=== PATIENT | female | born 1985 | race Hispanic/Latino ===

== ENCOUNTER 2016-04-28 15:06 | Emergency (ER) | payer SELFPAY ==
[2016-04-28 15:59] VITALS: BP 111/63
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
[2016-04-28] MEDS ORDERED: MOTRIN PO ONE (19:32)
[2016-04-28] MEDS ORDERED: NORCO 5/325 PO ONE ×2 (19:32→22:07)
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
== END 2016-04-28 22:31 | disposition home or self-care (01) ==
LOC: ED 15:06
DX: S82.831A Other fracture of upper and lower end of right fibula, initial encounter for closed fracture (principal); I10 Essential (primary) hypertension; M19.90 Unspecified osteoarthritis, unspecified site; F17.200 Nicotine dependence, unspecified, uncomplicated; V09.20XA Pedestrian injured in traffic accident involving unspecified motor vehicles, initial encounter; Y93.9 Activity, unspecified; Y99.9 Unspecified external cause status; Y92.410 Unspecified street and highway as the place of occurrence of the external cause

== ENCOUNTER 2018-10-11 14:25 | Emergency (ER) | payer OTHER ==
[2018-10-11] MEDS ORDERED: HALDOL IM PRN (14:44)
[2018-10-11] MEDS ORDERED: ATIVAN IM PRN (14:44)
--- NOTE | 2018-10-11 14:45 | Emergency Department Report ---
ED General Adult HPI - General Chief complaint: Altered Mental Status Stated complaint: AMS/OVERDOSE Time Seen by Provider: 10/11/18 14:34 Source: EMS (verbal report received from EMS.ems notes not available at time of chart dictation) Mode of arrival: Stretcher Limitations: Altered Mental Status - History of Present Illness Initial comments: This is a 32-year-old female. The patient is not known to this provider previously. The patient is brought to the hospital by emergency medical services. Apparently, the patient was found down, in a convenience store, with her pants down. Her last known well time is not known. The circumstances of her fall are not known. EMS indicates normal Accu-Chek in the field. Patient was given Narcan, with minimal response. In the emergency room, patient sleepy, but arouses to painful stimuli, moves 4 extremities spontaneously, is protecting her airway. -: unknown Radiation: other Quality: other Consistency: other Improves with: other Worsens with: other Associated Symptoms: other - Related Data Home Medications Medication Instructions Recorded Confirmed Last Taken ALBUTEROL Inhaler (OR & NICU) 2 puff IH QID PRN 01/11/13 01/11/13 01/11/13 [Proair] Previous Rx's Medication Instructions Recorded Last Taken Type Ibuprofen [Motrin] 800 mg PO TID PRN #20 tablet 01/11/13 Unknown Rx Ibuprofen [Motrin 800 MG tab] 800 mg PO Q8HR PRN #30 tablet 04/28/16 Unknown Rx Naloxone HCl [Narcan Nasal Mccaskill] 4 mg NS Q1HR PRN #1 spray 10/11/18 Unknown Rx Allergies Allergy/AdvReac Type Severity Reaction Status Date / Time No Known Allergies Allergy Unverified 01/11/13 16:15 ED Review of Systems ROS: Stated complaint: AMS/OVERDOSE Other details as noted in HPI Comment: Unobtainable due to pts medical conditions ED Past Medical Hx - Past Medical History Previous Medical History?: Yes Hx Hypertension: Yes Hx Arthritis: Yes Additional medical history: fibromyalgia. osteoparea - Social History Smoking Status: Unknown if ever smoked - Medications Home Medications: Home Medications Medication Instructions Recorded Confirmed Last Taken Type ALBUTEROL Inhaler (OR & NICU) 2 puff IH QID PRN 01/11/13 01/11/13 01/11/13 History [Proair] Ibuprofen [Motrin] 800 mg PO TID PRN #20 tablet 01/11/13 Unknown Rx Ibuprofen [Motrin 800 MG tab] 800 mg PO Q8HR PRN #30 tablet 04/28/16 Unknown Rx Naloxone HCl [Narcan Nasal Mccaskill] 4 mg NS Q1HR PRN #1 spray 10/11/18 Unknown Rx ED Physical Exam - General Limitations: Altered Mental Status General appearance: lethargic - Head Head exam: Present: atraumatic, normocephalic - Eye Eye exam: Present: normal appearance (pupils are 2 mm, react to light) - ENT ENT exam: Present: normal orophraynx, mucous membranes dry, normal external ear exam - Neck Neck exam: Present: normal inspection, full ROM. Absent: tenderness, meningismus - Respiratory Respiratory exam: Present: decreased breath sounds. Absent: respiratory distress, wheezes, rales, rhonchi, stridor - Cardiovascular Cardiovascular Exam: Present: normal rhythm, bradycardia, normal heart sounds. Absent: tachycardia, irregular rhythm, systolic murmur, diastolic murmur, rubs, gallop - GI/Abdominal GI/Abdominal exam: Present: soft. Absent: distended, tenderness, guarding, rebound, rigid, pulsatile mass - Rectal Rectal exam: Present: normal inspection, other (chaperoned by nurse Maria Teresa Plata) - External exam: Present: normal external exam, other (chaperoned by nurse Maria Teresa Plata) - Extremities Exam Extremities exam: Present: normal inspection, full ROM, other (2+ pulses noted in the bilateral upper, lower extremities. Compartments soft. No long bony tenderness. The pelvis is stable.). Absent: joint swelling, calf tenderness - Back Exam Back exam: Present: normal inspection. Absent: tenderness, CVA tenderness (R), paraspinal tenderness, vertebral tenderness - Neurological Exam Neurological exam: Present: altered, other (intermittently moves 4 extremities spontaneously. Intermittently speaks in nonsensical sentences.) - Psychiatric Psychiatric exam: Present: agitated - Skin Skin exam: Present: warm, dry, intact, normal color. Absent: rash ED Course Vital Signs 10/11/18 10/11/18 10/11/18 14:26 15:24 15:32 Temperature 97.6 F Pulse Rate 52 L 51 L 59 L Respiratory 16 16 11 L Rate Blood Pressure 114/74 O2 Sat by Pulse 98 Oximetry 10/11/18 10/11/18 10/11/18 15:45 16:00 16:15 Temperature Pulse Rate 54 L 59 L 70 Respiratory 15 11 L 12 Rate Blood Pressure 119/74 110/48 128/75 O2 Sat by Pulse 97 Oximetry 10/11/18 10/11/18 10/11/18 16:30 16:52 17:00 Temperature Pulse Rate 69 52 L 53 L Respiratory 15 10 L 13 Rate Blood Pressure 133/75 110/48 120/67 O2 Sat by Pulse 100 Oximetry 10/11/18 17:15 Temperature Pulse Rate 56 L Respiratory 10 L Rate Blood Pressure 116/67 O2 Sat by Pulse Oximetry - Reevaluation(s) Reevaluation #1: 10/11/18 15:44 Differential diagnosis, including but not limited to: Intracranial injury, cervical spine injury, toxic encephalopathy, overdose Assessment and plan: 32-year-old female, likely presenting with toxic metabolic encephalopathy, likely secondary to narcotic overdose. Patient sleepy but r esponds to painful stimuli. Patient protecting airway at this time. There was no evidence of self-inflicted wounds. Patient placed on 2012 for suspected opioid intoxication. Screening laboratory studies, noncontrast CT scan of the brain, cervical spine pending. Reevaluation #2: 10/11/18 18:00 CT scan of the brain, cervical spine negative for acute disease. X-ray of the chest is negative for acute disease. Patient now awake and alert, eating food, and clinically sober. She denies physical pain. She states she is not homicidal or suicidal. She states that she was walking to the [employer] store, and the next thing she remembers, she indicates that she was here. The patient indicates that she did not overdose on anything. Reevaluation #3: 10/11/18 19:28 Patient remains awake, alert, oriented. She continues to deny medical compl aints at this time. Patient is observed now for over 5 hours, and her status continues to improve clinically. She is adamant that she has not overdosed on anything. She does not meet 1013 criteria at this time. She ate a full meal tray, without difficulty. - EJ/Peripheral Line Leg R Time Out Performed: Yes Indications: nurses unable to establis Skin Cleansed in Sterile Fashion: Yes Size: 20 Dressing Placed: Tegaderm Patient Tolerated Procedure: well ED Medical Decision Making - Lab Data Result diagrams: 10/11/18 15:12 10/11/18 15:12 Vital Signs 10/11/18 10/11/18 14:26 15:24 Temperature 97.6 F Pulse Rate 52 L 51 L Respiratory 16 16 Rate Blood Pressure 114/74 O2 Sat by Pulse 98 Oximetry Lab Results 10/11/18 10/11/18 10/11/18 Range/Units 14:43 14:45 14:45 WBC (4.5-11.0) K/mm3 RBC (3.65-5.03) M/mm3 Hgb (10.1-14.3) gm/dl Hct (30.3-42.9) % MCV (79-97) fl MCH (28-32) pg MCHC (30-34) % RDW (13.2-15.2) % Plt Count (140-440) K/mm3 PT (12.2-14.9) Sec. INR (0.87-1.13) APTT (24.2-36.6) Sec. Sodium (137-145) mmol/L Potassium (3.6-5.0) mmol/L Chloride (98-107) mmol/L Carbon Dioxide (22-30) mmol/L Anion Gap mmol/L BUN (7-17) mg/dL Creatinine (0.7-1.2) mg/dL Estimated GFR ml/min BUN/Creatinine Ratio % Glucose (65-100) mg/dL POC Glucose 101 (70-105) Calcium (8.4-10.2) mg/dL Magnesium (1.7-2.3) mg/dL Total Bilirubin (0.1-1.2) mg/dL AST (5-40) units/L ALT (7-56) units/L Alkaline Phosphatase (35-129) units/L Total Creatine Kinase (30-135) units/L Total Protein (6.3-8.2) g/dL Albumin (3.9-5) g/dL Albumin/Globulin Ratio % Urine Color Yellow (Yellow) Urine Turbidity Clear (Clear) Urine pH 5.0 (5.0-7.0) Ur Specific Vida 1.032 H (1.003-1.030) Urine Protein 30 mg/dl (Negative) mg/dL Urine Glucose (UA) Neg (Negative) mg/dL Urine Ketones Tr (Negative) mg/dL Urine Blood Neg (Negative) Urine Nitrite Neg (Negative) Ur Reducing Substances Not Reportable Urine Bilirubin Sm (Negative) Urine Ictotest Positive (Negative) Urine Urobilinogen 4.0 (<2.0) mg/dL Ur Leukocyte Esterase Neg (Negative) Urine WBC (Auto) 1.0 (0.0-6.0) /HPF Urine RBC (Auto) 1.0 (0.0-6.0) /HPF U Epithel Cells (Auto) 2.0 (0-13.0) /HPF Urine Mucus 3+ /HPF Urine HCG, Qual Negative (Negative) Urine Opiates Screen Presumptive negative Urine Methadone Screen Presumptive negative Ur Barbiturates Screen Presumptive negative Ur Phencyclidine Scrn Presumptive negative U Benzodiazepines Scrn Presumptive negative Urine Cocaine Screen Presumptive negative Plasma/Serum Alcohol (0-0.07) % 10/11/18 10/11/18 10/11/18 Range/Units 15:12 15:12 15:12 WBC (4.5-11.0) K/mm3 RBC (3.65-5.03) M/mm3 Hgb (10.1-14.3) gm/dl Hct (30.3-42.9) % MCV (79-97) fl MCH (28-32) pg MCHC (30-34) % RDW (13.2-15.2) % Plt Count (140-440) K/mm3 PT 13.1 (12.2-14.9) Sec. INR 1.02 (0.87-1.13) APTT 24.3 (24.2-36.6) Sec. Sodium 146 H (137-145) mmol/L Potassium 4.4 (3.6-5.0) mmol/L Chloride 108.3 H (98-107) mmol/L Carbon Dioxide 21 L (22-30) mmol/L Anion Gap 21 mmol/L BUN 8 (7-17) mg/dL Creatinine 0.8 (0.7-1.2) mg/dL Estimated GFR > 60 ml/min BUN/Creatinine Ratio 10 % Glucose 100 (65-100) mg/dL POC Glucose (70-105) Calcium 9.4 (8.4-10.2) mg/dL Magnesium 2.10 (1.7-2.3) mg/dL Total Bilirubin 0.40 (0.1-1.2) mg/dL AST 12 (5-40) units/L ALT 6 L (7-56) units/L Alkaline Phosphatase 85 (35-129) units/L Total Creatine Kinase 121 (30-135) units/L Total Protein 7.0 (6.3-8.2) g/dL Albumin 4.5 (3.9-5) g/dL Albumin/Globulin Ratio 1.8 % Urine Color (Yellow) Urine Turbidity (Clear) Urine pH (5.0-7.0) Ur Specific Vida (1.003-1.030) Urine Protein (Negative) mg/dL Urine Glucose (UA) (Negative) mg/dL Urine Ketones (Negative) mg/dL Urine Blood (Negative) Urine Nitrite (Negative) Ur Reducing Substances Urine Bilirubin (Negative) Urine Ictotest (Negative) Urine Urobilinogen (<2.0) mg/dL Ur Leukocyte Esterase (Negative) Urine WBC (Auto) (0.0-6.0) /HPF Urine RBC (Auto) (0.0-6.0) /HPF U Epithel Cells (Auto) (0-13.0) /HPF Urine Mucus /HPF Urine HCG, Qual (Negative) Urine Opiates Screen Urine Methadone Screen Ur Barbiturates Screen Ur Phencyclidine Scrn U Benzodiazepines Scrn Urine Cocaine Screen Plasma/Serum Alcohol < 0.01 (0-0.07) % 10/11/18 Range/Units 15:12 WBC 9.2 (4.5-11.0) K/mm3 RBC 4.56 (3.65-5.03) M/mm3 Hgb 13.9 (10.1-14.3) gm/dl Hct 42.4 (30.3-42.9) % MCV 93 (79-97) fl MCH 31 (28-32) pg MCHC 33 (30-34) % RDW 14.1 (13.2-15.2) % Plt Count 230 (140-440) K/mm3 PT (12.2-14.9) Sec. INR (0.87-1.13) APTT (24.2-36.6) Sec. Sodium (137-145) mmol/L Potassium (3.6-5.0) mmol/L Chloride (98-107) mmol/L Carbon Dioxide (22-30) mmol/L Anion Gap mmol/L BUN (7-17) mg/dL Creatinine (0.7-1.2) mg/dL Estimated GFR ml/min BUN/Creatinine Ratio % Glucose (65-100) mg/dL POC Glucose (70-105) Calcium (8.4-10.2) mg/dL Magnesium (1.7-2.3) mg/dL Total Bilirubin (0.1-1.2) mg/dL AST (5-40) units/L ALT (7-56) units/L Alkaline Phosphatase (35-129) units/L Total Creatine Kinase (30-135) units/L Total Protein (6.3-8.2) g/dL Albumin (3.9-5) g/dL Albumin/Globulin Ratio % Urine Color (Yellow) Urine Turbidity (Clear) Urine pH (5.0-7.0) Ur Specific Vida (1.003-1.030) Urine Protein (Negative) mg/dL Urine Glucose (UA) (Negative) mg/dL Urine Ketones (Negative) mg/dL Urine Blood (Negative) Urine Nitrite (Negative) Ur Reducing Substances Urine Bilirubin (Negative) Urine Ictotest (Negative) Urine Urobilinogen (<2.0) mg/dL Ur Leukocyte Esterase (Negative) Urine WBC (Auto) (0.0-6.0) /HPF Urine RBC (Auto) (0.0-6.0) /HPF U Epithel Cells (Auto) (0-13.0) /HPF Urine Mucus /HPF Urine HCG, Qual (Negative) Urine Opiates Screen Urine Methadone Screen Ur Barbiturates Screen Ur Phencyclidine Scrn U Benzodiazepines Scrn Urine Cocaine Screen Plasma/Serum Alcohol (0-0.07) % - EKG Data -: EKG Interpreted by Me EKG shows normal: sinus rhythm Rate: bradycardia - EKG Data 10/11/18 15:46 This is a sinus bradycardia, 50 bpm, normal axis, QTC within normal limits, there is no prior for comparison, there is no endorsement of chest pain, his EKG is not consistent with ST elevation myocardial infarction. - Radiology Data Radiology results: pending Critical care attestation.: If time is entered above; I have spent that time in minutes in the direct care of this critically ill patient, excluding procedure time. ED Disposition Clinical Impression: General medical exam Disposition: DC-01 TO HOME OR SELFCARE Is pt being admited?: No Does the pt Need Aspirin: No Condition: Stable Additional Instructions: Follow up with a primary care doctor or neurologist within the next [address] or operate motor vehicles for the next 7 days. Avoid consumption of sedating medications, and do not consume illegal drugs. Return to the emergency room right away with new, worsening or different symptoms not on initial emergen cy room evaluation. If patient unless to consume recreational drugs, or opioids/narcotics, she shoul d not consume by herself, and should use the Narcan medication as directed. Referrals: [facility] MADY [Primary Care Provider] - 3-5 Days FARHAN MATAMOROS MD [Staff Physician] - 3-5 Days MITZI CAMACHO MD [Staff Physician] - 3-5 Days
[2018-10-11 15:29] LABS: HCG Qualitative,Urine Negative (Negative)
[2018-10-11 15:32] LABS: Bilirubin,Urine SM (Negative); Blood,Urine NEG (Negative); Color,Urine Yellow (Yellow); Mucus,Urine 3+ /HPF
[2018-10-11 15:36] LABS: Benzodiazepines Screen,Urine PRESUMPTIVE NEGATIVE; Cocaine Screen,Urine PRESUMPTIVE NEGATIVE; Methadone Screen,Urine PRESUMPTIVE NEGATIVE; Opiate Screen,Urine PRESUMPTIVE NEGATIVE
[2018-10-11 15:36] LABS: INR 1.02 (0.87-1.13); Partial Thromboplastin Time 24.3 Sec. (24.2-36.6)
[2018-10-11 15:38] LABS: Hematocrit 42.4 % (30.3-42.9); Hemoglobin 13.9 gm/dl (10.1-14.3); Mean Corpuscular HGB Conc 33 % (30-34); Mean Corpuscular Volume 93 fl (79-97); Platelet Count 230 K/mm3 (140-440); Red Blood Count 4.56 M/mm3 (3.65-5.03); Red Cell Distribution Width 14.1 % (13.2-15.2)
[2018-10-11 15:39] LABS: Ictotest,Urine Positive (Negative)
[2018-10-11 15:42] LABS: Alanine Aminotransferase 6 units/L (7-56); Albumin 4.5 g/dL (3.9-5); BUN/Creatinine Ratio 10; Blood Urea Nitrogen 8 mg/dL (7-17); Calcium 9.4 mg/dL (8.4-10.2); Hemolysis Index 33
[2018-10-11 15:48] LABS: Amphetamine Screen,Urine PRESUMPTIVE POSITIVE; Cannabinoid Screen,Urine PRESUMPTIVE POSITIVE
--- NOTE | 2018-10-11 16:32 | XRay Report ---
CHEST 1 VIEW 10/11/2018 4:07 PM INDICATION / CLINICAL INFORMATION: Altered Mental Status. COMPARISON: None available. FINDINGS: SUPPORT DEVICES: None. HEART / MEDIASTINUM: No significant abnormality. LUNGS / PLEURA: No significant pulmonary or pleural abnormality. No pneumothorax. ADDITIONAL FINDINGS: No significant additional findings. IMPRESSION: 1. No acute findings. Signer Name: Pete Nova MD Signed: 10/11/2018 3:27 PM Workstation Name: [id number]
--- NOTE | 2018-10-11 17:28 | Cat Scan Report ---
CT head/brain wo con INDICATION: Altered Mental Status. 32-year-old female with altered mental status; headaches TECHNIQUE: Routine CT head without contrast. All CT scans at this location are performed using CT dos e reduction for ALARA by means of automated exposure control. COMPARISON: None. FINDINGS: BRAIN / INTRACRANIAL CONTENTS: No acute hemorrhage, mass effect, midline shift, hydrocephalus, or acu te, large territorial infarct. No chronic infarct or focal atrophy. Normal brain volume and ventricul ar/sulcal size for age. No significant white matter abnormality. CRANIOCERVICAL JUNCTION: No significant abnormality. ORBITS: No significant abnormality of visualized orbits. SINUSES / MASTOIDS: No significant abnormality of the visualized paranasal sinuses or mastoid air garrick ls. ADDITIONAL FINDINGS: None. IMPRESSION: 1. No focal mass, hemorrhage, hydrocephalus, or acute, large territorial infarct. Signer Name: Nba Álvarez MD, III Signed: 10/11/2018 4:24 PM Workstation Name: [id number]
--- NOTE | 2018-10-11 17:32 | Cat Scan Report ---
CT CERVICAL SPINE INDICATION: ams found down OD. 32-year-old female with altered mental status; neck pain and trauma TECHNIQUE: Axial CT images of the cervical spine were obtained. Sagittal and coronal reformatted images were pr oduced. All CT scans at this location are performed using CT dose reduction for ALARA by means of aut omated exposure control. COMPARISON: None available. FINDINGS: POST-SURGICAL CHANGES: None. ALIGNMENT: Normal cervical lordosis seen without significant scoliosis. VERTEBRAE: No signs of fracture. Vertebral bodies are grossly normal in height throughout. No signif icant facet joint disease or osseous foraminal narrowing appreciated. INTRAVERTEBRAL DISCS: Mild disc space narrowing suggested at C6-7, as well as minimal disc disease. N o definitive signs of significant canal stenosis appreciated, although patient's body habitus somewha t limits visualization of the vertebral canal. PARASPINAL SOFT TISSUES: No significant abnormality. ADDITIONAL FINDINGS: None. IMPRESSION: 1. No signs of acute bony trauma to the cervical spine. Signer Name: Nba Álvarez MD, III Signed: 10/11/2018 4:28 PM Workstation Name: [id number]
[2018-10-11 19:54] VITALS: BP 127/58
== END 2018-10-11 20:03 | disposition home or self-care (01) ==
LOC: ED 14:25
DX: R41.82 Altered mental status, unspecified (principal); R00.1 Bradycardia, unspecified; T50.7X1A Poisoning by analeptics and opioid receptor antagonists, accidental (unintentional), initial encounter; I10 Essential (primary) hypertension; M79.7 Fibromyalgia; Z79.1 Long term (current) use of non-steroidal anti-inflammatories (NSAID); Y92.89 Other specified places as the place of occurrence of the external cause
CPT/HCPCS: 36415; 36556; 70450; 71045; 72125; 80053; 80307; 81001; 81025; 82550; 82962; 83735; 84443; 85027; 85610; 85730; 93005; 93010; 99285; G0480; 80320